=== PATIENT | female | born 1930 | race Caucasian/White ===

== ENCOUNTER 2019-07-05 11:35 | Emergency (ER) | payer MEDICARE ==
[~2019-07-05] VITALS: Ht 157.4 cm; Wt 99.8 kg
--- NOTE | ~2019-07-05 | EKG ---
[place], [place] ELECTROCARDIOGRAM REPORT NAME: Cas GOTTI UNIT #: [id number] ROOM: DOCTOR: EPIPHANY DRAFT REPORT BIRTHDATE: [birth year] [facility] Test Date: 2019-07-05 Test Time: 13:38:57 Pat Name: Cas GOTTI Department: Room: Gender: F Web Editor: : 1930 Requested By: REE MATSON Order Number: [id number] Reading MD: Xenia Townsend MD Measurements Intervals [place] Rate: 68 P: 42 MS: 192 QRS: 64 QRSD: 103 T: 18 QT: 405 QTc: 431 Interpretive Statements Sinus rhythm Probable anteroseptal infarct, old Electronically Signed On 07-07-2019 15:52:17 PDT by Xenia Townsend MD CM:EKGRPT:ELECTROCARDIOGRAM REPORT [id number] REE RIVERA DRAFT REPORT REE MATSON DO
[~2019-07-05 11:35] MED LIST: 'XANAX0.25 MG PO; ASPIRIN CHILDRE81 MG PO; CITALOPRAM HYDR20 MG PO; CRESTOR10 MG PO; FLUZONE HIGH; HYDROCODON-ACETAMINO; HYZAAR 12.5 MG-1 TAB PO; IBU-4400 MG PO; JANUMET; LANTUS100 U/ML SC; LEVOTHYROXINE0.1 M1 PO; LIPITOR20 MG PO; LOSARTAN-HCTZ 50-12.; MELOXICAM15 MG PO; OMEPRAZOLE40 MG PO; OXYBUTYNIN CHLO10 MG PO; PERCOCET 325 MG1 TA2 PO; REQUIP0.25 MG PO; XARELTO10 MG PO; [UNRECOGNIZED DRUG - OTHER] PO
[2019-07-05 13:13] LABS: BASO # 0.1 10*3/uL (0.0-0.1); BASO % 0.9 % (0.0-1.0); EOS # 0.3 10*3/uL (0.0-0.4); EOS % 4.3 % (1.0-4.0); HEMATOCRIT 37.5 % (37.0-47.0); LYMPH # 2.2 10*3/uL (1.3-4.4); LYMPH % 33.9 % (27.0-41.0); MEAN CELL VOLUME 95.7 fl (81.0-99.0); MEAN CORPUSCULAR HGB 30.6 pg (27.0-31.0); MEAN PLATELET VOLUME 11.5 fl (9.6-12.3); MONO # 0.6 10*3/uL (0.1-1.0); MONO % 9.8 % (3.0-9.0); NEUT # 3.2 10*3/uL (2.3-7.9); NEUT % 50.8 % (47.0-73.0); PLATELET COUNT AUTOMATED 199 10*3/uL (130-400); RED BLOOD COUNT 3.92 10*6/uL (4.10-5.10); RED CELL DISTRI WIDTH 13.9 % (0-14.5); WHITE BLOOD COUNT 6.4 10*3/uL (4.8-10.8)
[2019-07-05 13:29] LABS: ALBUMIN 3.6 gm/dl (3.1-4.5); ALKALINE PHOSPHATASE 68 U/L (45-117); BUN 31 mg/dl (7-24); CHLORIDE 101 mmol/L (98-107); CREATININE 0.82 mg/dL (0.55-1.02); LIPASE 32 U/L (73-393); POTASSIUM 4.5 mmol/L (3.5-5.1); SGOT/AST 13 IU/L (3-35); SGPT/ALT 19 U/L (12-78); SODIUM 137 mmol/L (136-145)
[2019-07-05 13:35] LABS: TROPONIN I < 0.015 ng/ml (<0.045)
[2019-07-05 14:02] LABS: ACT PARTIAL THROMBO TIME 25.7 SECONDS (20.0-32.1)
[2019-07-05] MEDS ORDERED: DOXYCYCLINE100 M3 PO (16:17)
== END 2019-07-05 16:15 | disposition home or self-care (01) ==
LOC: ED 11:35
PROVIDERS: Emergency Medicine
DX: L03.116 Cellulitis of left lower limb (principal); E11.9 Type 2 diabetes mellitus without complications; I10 Essential (primary) hypertension; E78.5 Hyperlipidemia, unspecified; Z86.718 Personal history of other venous thrombosis and embolism; Z79.899 Other long term (current) drug therapy

== ENCOUNTER 2019-08-14 17:15 | Emergency (ER) | payer MEDICARE ==
[~2019-08-14] VITALS: Ht 162.5 cm; Wt 95.3 kg
[~2019-08-14 17:15] MED LIST changes: +DOXYCYCLINE100 M3 PO
[2019-08-14 17:55] LABS: BASO % 0.5 % (0.0-1.0); EOS # 0.3 10*3/uL (0.0-0.4); EOS % 3.7 % (1.0-4.0); HEMATOCRIT 36.7 % (37.0-47.0); HEMOGLOBIN 11.5 g/dl (12.0-16.0); LYMPH # 1.7 10*3/uL (1.3-4.4); MEAN CELL VOLUME 95.6 fl (81.0-99.0); MEAN CORPUSCULAR HGB 29.9 pg (27.0-31.0); MEAN CORPUSCULAR HGB CONC 31.3 g/dl (33.0-37.0); MEAN PLATELET VOLUME 11.9 fl (9.6-12.3); MONO # 0.8 10*3/uL (0.1-1.0); MONO % 9.4 % (3.0-9.0); NEUT # 5.5 10*3/uL (2.3-7.9); NEUT % 66.2 % (47.0-73.0); PLATELET COUNT AUTOMATED 180 10*3/uL (130-400); RED BLOOD COUNT 3.84 10*6/uL (4.10-5.10); RED CELL DISTRI WIDTH 14.1 % (0-14.5); WHITE BLOOD COUNT 8.3 10*3/uL (4.8-10.8)
[2019-08-14 18:10] LABS: ALBUMIN 3.4 gm/dl (3.1-4.5); ALKALINE PHOSPHATASE 72 U/L (45-117); BUN 25 mg/dl (7-24); CHLORIDE 104 mmol/L (98-107); CREATININE 0.65 mg/dL (0.55-1.02); POTASSIUM 3.9 mmol/L (3.5-5.1); SGOT/AST 15 IU/L (3-35); SGPT/ALT 21 U/L (12-78); SODIUM 137 mmol/L (136-145); TOTAL PROTEIN 6.8 gm/dL (6.4-8.2)
[2019-08-14] MEDS ORDERED: CEPHALEXIN500 M1 PO (19:58)
== END 2019-08-14 20:15 | disposition home or self-care (01) ==
LOC: ED 17:15
PROVIDERS: Nurse Practitioner Family
DX: L03.032 Cellulitis of left toe (principal); L03.031 Cellulitis of right toe; B35.1 Tinea unguium; I10 Essential (primary) hypertension; E11.9 Type 2 diabetes mellitus without complications; E07.9 Disorder of thyroid, unspecified; Z79.2 Long term (current) use of antibiotics; Z79.899 Other long term (current) drug therapy; Z96.653 Presence of artificial knee joint, bilateral

== ENCOUNTER 2020-06-07 13:13 | Observation (INO) | payer MEDICARE ==
[~2020-06-07] VITALS: Ht 167.6 cm; Wt 90.0 kg
[~2020-06-07 13:13] MED LIST changes: +CEPHALEXIN500 M1 PO
[2020-06-07 13:22] VITALS: BP 155/57
[2020-06-07 13:38] LABS: BASO % 0.2 % (0.0-1.0); EOS % 0.2 % (1.0-4.0); HEMATOCRIT 36.7 % (37.0-47.0); LYMPH % 18.6 % (27.0-41.0); MEAN CELL VOLUME 93.1 fl (81.0-99.0); MEAN CORPUSCULAR HGB 29.7 pg (27.0-31.0); MEAN CORPUSCULAR HGB CONC 31.9 g/dl (33.0-37.0); MEAN PLATELET VOLUME 12.1 fl (9.6-12.3); MONO # 0.7 10*3/uL (0.1-1.0); MONO % 6.8 % (3.0-9.0); NEUT # 7.8 10*3/uL (2.3-7.9); NEUT % 73.9 % (47.0-73.0); PLATELET COUNT AUTOMATED 204 10*3/uL (130-400); RED BLOOD COUNT 3.94 10*6/uL (4.10-5.10); RED CELL DISTRI WIDTH 13.6 % (0-14.5); WHITE BLOOD COUNT 10.5 10*3/uL (4.8-10.8)
[2020-06-07 13:46] VITALS: BP 147/54; BP 155/57
[2020-06-07 13:49] LABS: ACT PARTIAL THROMBO TIME 25.4 SECONDS (20.0-32.1)
[2020-06-07 13:54] LABS: ALBUMIN 3.4 gm/dl (3.1-4.5); ALKALINE PHOSPHATASE 72 U/L (45-117); BUN 20 mg/dl (7-24); CHLORIDE 102 mmol/L (98-107); CREATININE 0.71 mg/dL (0.55-1.02); POTASSIUM 4.1 mmol/L (3.5-5.1); SGOT/AST 9 IU/L (3-35); SGPT/ALT 20 U/L (12-78); SODIUM 139 mmol/L (136-145); TOTAL PROTEIN 7.4 gm/dL (6.4-8.2)
[2020-06-07 14:01] LABS: TROPONIN I < 0.015 ng/ml (<0.045)
[2020-06-07 14:38] VITALS: BP 104/65
--- NOTE | 2020-06-07 15:00 | NUR ---
EXCORIATION NOTED TO R/L ABDOMINAL FOLDS. REDNESS NOTED TO BOTH FEET.
[2020-06-07 15:30] VITALS: BP 160/60; BP 162/60
--- NOTE | 2020-06-07 15:30 | NUR ---
A 89, admitted to , under the services of NORY Villalobos DO with a diagnosis of CHEST PAIN. Chief complaint is CHEST PAIN. Patient arrived via bed from ER. Monitor applied. Initial assessment completed. Vital signs taken and recorded. NORY VILLALOBOS DO notified of admission to the unit. Orders received. See assessment for past medical history, medications and allergies. Patient and/or family oriented to unit. [facility] visitation policy reviewed. Clothing/patient valuable form completed. EVON MO
[2020-06-07 16:00] VITALS: BP 168/46
[2020-06-07] MEDS ORDERED: GLIMEPIRIDE4 M1 PO (16:13)
--- NOTE | 2020-06-07 16:16 | NUR ---
PATIENT HAS NO IV SITE.
--- NOTE | 2020-06-07 16:51 | NUR ---
NOTIFIED DR GOMEZ OF WOUND CARE ORDERS. MED REC COMPLETED ALSO.
[2020-06-07 20:00] VITALS: BP 173/46
--- NOTE | 2020-06-07 20:11 | NUR ---
MEDICATED WITH NORCO FOR C/O LEFT LEG PAIN THAT WAS RATED A 7 AND ACHING. REPOSITIONED.
[2020-06-07] MEDS ORDERED: KEFLEX500 M1 PO (20:16)
--- NOTE | 2020-06-07 20:16 | NUR ---
24 HR chart check completed.
[2020-06-08] VITALS: BP 127/42
--- NOTE | 2020-06-08 00:56 | NUR ---
MEDICATED WITH PRN TYLENOL FOR C/O BACK PAIN. WILL MONITOR
--- NOTE | 2020-06-08 01:56 | NUR ---
TYLENOL SOMEWHAT EFFECTIVE PER PATIENT
[2020-06-08 03:00] VITALS: BP 175/54
--- NOTE | 2020-06-08 03:12 | NUR ---
MEDICATED WITH PRN NORCO FOR C/O ALL OVER PAIN. WILL MONITOR
--- NOTE | 2020-06-08 04:12 | NUR ---
MEDICATION EFFECTIVE PER PATIENT
[2020-06-08 06:56] LABS: BASO % 0.4 % (0.0-1.0); EOS # 0.1 10*3/uL (0.0-0.4); EOS % 1.6 % (1.0-4.0); HEMATOCRIT 36.2 % (37.0-47.0); LYMPH # 2.1 10*3/uL (1.3-4.4); LYMPH % 31.4 % (27.0-41.0); MEAN CELL VOLUME 93.3 fl (81.0-99.0); MEAN CORPUSCULAR HGB 29.4 pg (27.0-31.0); MEAN CORPUSCULAR HGB CONC 31.5 g/dl (33.0-37.0); MONO # 0.5 10*3/uL (0.1-1.0); MONO % 7.7 % (3.0-9.0); NEUT % 58.8 % (47.0-73.0); PLATELET COUNT AUTOMATED 181 10*3/uL (130-400); RED BLOOD COUNT 3.88 10*6/uL (4.10-5.10); RED CELL DISTRI WIDTH 13.7 % (0-14.5); WHITE BLOOD COUNT 6.7 10*3/uL (4.8-10.8)
[2020-06-08 07:12] LABS: ALBUMIN 3.1 gm/dl (3.1-4.5); ALKALINE PHOSPHATASE 66 U/L (45-117); BUN 17 mg/dl (7-24); CHLORIDE 102 mmol/L (98-107); CHOLESTEROL 145 mg/dL (<200); CREATININE 0.68 mg/dL (0.55-1.02); FREE T4 1.38 ng/dl (0.76-1.46); HDL CHOLESTEROL 69 mg/dl (40-60); LDL CHOLESTEROL 56 mg/dL (9-159); POTASSIUM 4.5 mmol/L (3.5-5.1); SGOT/AST 13 IU/L (3-35); SGPT/ALT 21 U/L (12-78); SODIUM 138 mmol/L (136-145); TOTAL PROTEIN 6.4 gm/dL (6.4-8.2); TRIGLYCERIDES 102 mg/dl (<150); VLDL CHOLESTEROL 20 mg/dL (6-40)
[2020-06-08 07:16] LABS: THYROID STIM HORMONE (HS) 0.832 uIU/ml (0.358-4.75)
[2020-06-08 08:00] VITALS: BP 180/64
[2020-06-08 08:19] LABS: VITAMIN D, 25-HYDROXY 36.7 ng/mL (30-100)
--- NOTE | 2020-06-08 08:49 | NUR ---
PODIATRY RESIDENT NOTIFIED OF CONSULT.
--- NOTE | 2020-06-08 09:00 | NUR ---
Toy Maker in to talk to patient. Patient states lives at home with family. There are no steps in the home. Physician: butch Pharmacy: [facility] Home health services: none Patient's level of ADLs: INDEPENDENT Patient has working utilities: all working DME: none Follow-up physician's appointment after d/c: will be made by hospitalist nurse director upon discharge Does patient want to access PORTAL?: no Discharge plan discussed with patient, she states she lives at home, gets around fine, she states she will return home when discharged and denies any home need, case management will follow. LOUIE TRINIDAD
--- NOTE | 2020-06-08 14:35 | NUR ---
PT DISCHARGED HOME TO CARE OF SELF/FAMILY. MONITOR DISCONTINUED, IV DISCONTINUED WITH NO S&S OF COMLPLICATIONS. PT VERBALIZES UNDERSTANDING OF DISCHARGE INSTRUCTIONS.
== END 2020-06-08 14:35 | disposition home or self-care (01) ==
LOC: ED 13:13 → 4E 14:19 → EDHOLD 14:19 → 4E 14:32
PROVIDERS: Emergency Medicine; Internal Medicine; ADMIT Family Medicine; ATTEND Family Medicine
DX: R07.89 Other chest pain (principal); D64.9 Anemia, unspecified; E11.65 Type 2 diabetes mellitus with hyperglycemia; I10 Essential (primary) hypertension; E78.5 Hyperlipidemia, unspecified; E03.9 Hypothyroidism, unspecified; F32.9 Major depressive disorder, single episode, unspecified

== ENCOUNTER 2021-02-04 00:33 | Emergency (ER) | payer MEDICARE ==
[~2021-02-04] VITALS: Ht 165.1 cm; Wt 95.3 kg
[~2021-02-04 00:33] MED LIST changes: +GLIMEPIRIDE4 M1 PO; +KEFLEX500 M1 PO
== END 2021-02-04 06:20 | disposition home or self-care (01) ==
LOC: ED 00:33
DX: S01.01XA Laceration without foreign body of scalp, initial encounter (principal); F32.9 Major depressive disorder, single episode, unspecified; E78.5 Hyperlipidemia, unspecified; I10 Essential (primary) hypertension; E03.9 Hypothyroidism, unspecified; Z87.891 Personal history of nicotine dependence; Z96.653 Presence of artificial knee joint, bilateral; Z98.51 Tubal ligation status; Z98.890 Other specified postprocedural states; X58.XXXA Exposure to other specified factors, initial encounter; Y93.89 Activity, other specified; Y92.89 Other specified places as the place of occurrence of the external cause; Y99.8 Other external cause status

== ENCOUNTER 2021-06-25 18:26 | Emergency (ER) | payer MEDICARE ==
[2021-06-25 19:08] LABS: BASO % 0.3 % (0.0-1.0); EOS # 0.1 10*3/uL (0.0-0.4); EOS % 0.5 % (1.0-4.0); HEMATOCRIT 37.7 % (37.0-47.0); LYMPH # 0.8 10*3/uL (1.3-4.4); LYMPH % 8.6 % (27.0-41.0); MEAN CELL VOLUME 98.4 fl (81.0-99.0); MEAN CORPUSCULAR HGB 30.3 pg (27.0-31.0); MEAN CORPUSCULAR HGB CONC 30.8 g/dl (33.0-37.0); MEAN PLATELET VOLUME 12.7 fl (9.6-12.3); MONO # 0.6 10*3/uL (0.1-1.0); MONO % 6.6 % (3.0-9.0); NEUT # 8.1 10*3/uL (2.3-7.9); NEUT % 83.8 % (47.0-73.0); PLATELET COUNT AUTOMATED 151 10*3/uL (130-400); RED BLOOD COUNT 3.83 10*6/uL (4.10-5.10); RED CELL DISTRI WIDTH 14.3 % (0-14.5); WHITE BLOOD COUNT 9.7 10*3/uL (4.8-10.8)
[2021-06-25 19:28] LABS: ALBUMIN 3.2 gm/dl (3.1-4.5); ALKALINE PHOSPHATASE 74 U/L (45-117); BUN 34 mg/dl (7-24); CHLORIDE 105 mmol/L (98-107); CPK 40 U/L (26-192); CREATININE 1.04 mg/dL (0.55-1.02); POTASSIUM 3.6 mmol/L (3.5-5.1); SGOT/AST 11 IU/L (3-35); SGPT/ALT 18 U/L (12-78); SODIUM 139 mmol/L (136-145); TOTAL PROTEIN 6.7 gm/dL (6.4-8.2)
[2021-06-25 19:29] LABS: TROPONIN I 0.019 ng/ml (<0.045)
[2021-06-25 21:23] LABS: BILIRUBIN Negative (Negative); BLOOD Negative (Negative); CLARITY Clear (Clear); COLOR Dark Yellow (Yellow); GLUCOSE Negative (Negative); KETONE Negative (Negative); LEUKO ESTERASE Trace (Negative); NITRITE Negative (Negative)
[2021-06-25 21:37] LABS: BACTERIA 1+; EPITHELIAL CELLS 0-2
== END 2021-06-25 23:14 | disposition short-term general hospital (02) ==
LOC: ED 18:26
PROVIDERS: Emergency Medicine
DX: I44.1 Atrioventricular block, second degree (principal); Z79.899 Other long term (current) drug therapy; I10 Essential (primary) hypertension; E11.9 Type 2 diabetes mellitus without complications; E78.5 Hyperlipidemia, unspecified; Z87.891 Personal history of nicotine dependence

== ENCOUNTER 2021-09-10 03:20 | Inpatient (IN) | payer MEDICARE ==
[2021-09-10] VITALS (8 sets, daily range): BP systolic 113–165; BP diastolic 63–81
[~2021-09-10] VITALS: Ht 162.5 cm; Wt 84.4 kg
[~2021-09-10 03:20] MED LIST changes: +ATORVASTATIN CA40 M1 PO; +BUMETANIDE1 MG PO; +HYDROCODONE-IB1 EACH PO; +LOSARTAN POTASS50 M1 PO; +POTASSIUM CHLO20 ME3 PO
[2021-09-10 05:33] LABS: ALBUMIN 2.9 gm/dl (3.1-4.5); ALKALINE PHOSPHATASE 80 U/L (45-117); BUN 17 mg/dl (7-24); CHLORIDE 108 mmol/L (98-107); CREATININE 0.61 mg/dL (0.55-1.02); POTASSIUM 3.4 mmol/L (3.5-5.1); SGOT/AST 12 IU/L (3-35); SGPT/ALT 21 U/L (12-78); SODIUM 142 mmol/L (136-145); TOTAL PROTEIN 6.9 gm/dL (6.4-8.2)
[2021-09-10 05:58] LABS: BASO % 0.5 % (0.0-1.0); EOS # 0.1 10*3/uL (0.0-0.4); EOS % 1.4 % (1.0-4.0); HEMATOCRIT 33.9 % (37.0-47.0); LYMPH # 1.1 10*3/uL (1.3-4.4); LYMPH % 14.8 % (27.0-41.0); MEAN CELL VOLUME 95.2 fl (81.0-99.0); MEAN CORPUSCULAR HGB 30.9 pg (27.0-31.0); MEAN CORPUSCULAR HGB CONC 32.4 g/dl (33.0-37.0); MEAN PLATELET VOLUME 12.7 fl (9.6-12.3); MONO # 0.6 10*3/uL (0.1-1.0); NEUT # 5.7 10*3/uL (2.3-7.9); NEUT % 74.1 % (47.0-73.0); PLATELET COUNT AUTOMATED 164 10*3/uL (130-400); RED BLOOD COUNT 3.56 10*6/uL (4.10-5.10); WHITE BLOOD COUNT 7.6 10*3/uL (4.8-10.8)
[2021-09-11] VITALS: BP 138/45
[2021-09-11 02:16] VITALS: BP 122/57
[2021-09-11] MEDS ORDERED: ATORVASTATIN CA20 M1 PO (06:26)
[2021-09-11] MEDS ORDERED: BUMETANIDE1 MG PO (06:27)
[2021-09-11] MEDS ORDERED: ASPIRIN ADULT L81 M2 PO (06:28)
[2021-09-11 06:30] LABS: BASO % 0.6 % (0.0-1.0); EOS # 0.2 10*3/uL (0.0-0.4); EOS % 2.8 % (1.0-4.0); HEMATOCRIT 34.9 % (37.0-47.0); LYMPH # 1.7 10*3/uL (1.3-4.4); LYMPH % 25.1 % (27.0-41.0); MEAN CELL VOLUME 94.8 fl (81.0-99.0); MEAN CORPUSCULAR HGB 30.4 pg (27.0-31.0); MEAN CORPUSCULAR HGB CONC 32.1 g/dl (33.0-37.0); MEAN PLATELET VOLUME 12.3 fl (9.6-12.3); MONO # 0.8 10*3/uL (0.1-1.0); NEUT # 4.1 10*3/uL (2.3-7.9); NEUT % 59.2 % (47.0-73.0); PLATELET COUNT AUTOMATED 176 10*3/uL (130-400); RED BLOOD COUNT 3.68 10*6/uL (4.10-5.10); RED CELL DISTRI WIDTH 13.9 % (0-14.5); WHITE BLOOD COUNT 6.9 10*3/uL (4.8-10.8)
[2021-09-11] MEDS ORDERED: TIMOLOL MALEATE5 M1 OPH (06:33)
[2021-09-11] MEDS ORDERED: VITAMIN D3125 MC1 PO (06:33)
[2021-09-11 06:34] LABS: BUN 11 mg/dl (7-24); CHLORIDE 103 mmol/L (98-107); CREATININE 0.58 mg/dL (0.55-1.02); POTASSIUM 2.7 mmol/L (3.5-5.1); SODIUM 142 mmol/L (136-145)
[2021-09-11 08:00] VITALS: BP 141/58
[2021-09-11 12:00] VITALS: BP 135/57
[2021-09-11 16:00] VITALS: BP 146/86
[2021-09-11 20:00] VITALS: BP 101/52
[2021-09-12] VITALS: BP 109/81
[2021-09-12 06:58] LABS: BASO % 0.5 % (0.0-1.0); EOS # 0.3 10*3/uL (0.0-0.4); EOS % 3.4 % (1.0-4.0); HEMATOCRIT 36.6 % (37.0-47.0); LYMPH # 2.1 10*3/uL (1.3-4.4); LYMPH % 28.7 % (27.0-41.0); MEAN CELL VOLUME 95.1 fl (81.0-99.0); MEAN CORPUSCULAR HGB 30.1 pg (27.0-31.0); MEAN CORPUSCULAR HGB CONC 31.7 g/dl (33.0-37.0); MEAN PLATELET VOLUME 12.5 fl (9.6-12.3); MONO # 0.7 10*3/uL (0.1-1.0); MONO % 9.1 % (3.0-9.0); NEUT # 4.2 10*3/uL (2.3-7.9); NEUT % 58.2 % (47.0-73.0); PLATELET COUNT AUTOMATED 214 10*3/uL (130-400); RED BLOOD COUNT 3.85 10*6/uL (4.10-5.10); RED CELL DISTRI WIDTH 14.1 % (0-14.5); WHITE BLOOD COUNT 7.3 10*3/uL (4.8-10.8)
[2021-09-12 07:25] LABS: ALBUMIN 2.7 gm/dl (3.1-4.5); CHLORIDE 104 mmol/L (98-107); SODIUM 141 mmol/L (136-145)
[2021-09-12 07:30] LABS: ALKALINE PHOSPHATASE 71 U/L (45-117); BUN 17 mg/dl (7-24); CREATININE 0.68 mg/dL (0.55-1.02); SGOT/AST 9 IU/L (3-35); SGPT/ALT 16 U/L (12-78); TOTAL PROTEIN 6.6 gm/dL (6.4-8.2)
[2021-09-12 07:36] LABS: POTASSIUM 3.9 mmol/L (3.5-5.1)
[2021-09-12 08:00] VITALS: BP 129/85
[2021-09-12 12:00] VITALS: BP 182/61
[2021-09-12] MEDS ORDERED: POTASSIUM CHLO20 ME3 PO (15:05)
[2021-09-12] MEDS ORDERED: LOSARTAN POTASS50 M1 PO (15:05)
[2021-09-12] MEDS ORDERED: XARE20MG PO (15:05)
[2021-09-12] MEDS ORDERED: BUMETANIDE1 MG PO (15:05)
[2021-09-12 15:54] VITALS: BP 168/83; BP 183/64
== END 2021-09-12 19:30 | disposition home or self-care (01) | DRG 291 ==
LOC: ED 03:20 → EDHOLD 06:25 → 4E 06:25
PROVIDERS: Emergency Medicine; Hospitalist; Internal Medicine; Student in an Organized Health Care Education/Training Program; ADMIT Family Medicine; ATTEND Family Medicine
DX: I11.0 Hypertensive heart disease with heart failure (principal); J96.01 Acute respiratory failure with hypoxia; I50.31 Acute diastolic (congestive) heart failure; E44.0 Moderate protein-calorie malnutrition; J91.8 Pleural effusion in other conditions classified elsewhere; D64.9 Anemia, unspecified; E87.6 Hypokalemia; E11.65 Type 2 diabetes mellitus with hyperglycemia; I08.2 Rheumatic disorders of both aortic and tricuspid valves; I48.91 Unspecified atrial fibrillation; Z96.653 Presence of artificial knee joint, bilateral; Z87.891 Personal history of nicotine dependence; Z82.49 Family history of ischemic heart disease and other diseases of the circulatory system; Z79.82 Long term (current) use of aspirin; Z79.899 Other long term (current) drug therapy; Z68.32 Body mass index [BMI] 32.0-32.9, adult; Z20.822 Contact with and (suspected) exposure to COVID-19